=== PATIENT | male | born 1935 | race Caucasian/White ===

== ENCOUNTER 2025-02-13 13:04 | Inpatient (IN) | payer BC, MEDICARE ==
[~2025-02-13] VITALS: Ht 182.9 cm; Wt 123.6 kg
[2025-02-13 14:39] LABS: BASO # 0.0 10^3/uL (0.0-0.2); BASO % 0.2 % (0.0-1.0); EOS # 0.1 10^3/uL (0.0-0.5); EOS % 0.5 % (0.0-3.0); LYMPH # 0.7 10^3/uL (1.5-5.0); LYMPH % 6.2 % (24.0-44.0); MONO # 0.7 10^3/uL (0.0-0.8); MONO % 7.0 % (2.0-8.0); NEUTROPHILS # 9.0 10^3/uL (1.5-8.5); NEUTROPHILS % 85.5 % (36.0-66.0); PLATELET COUNT, AUTOMATED 170 10^3/uL (150-450)
[2025-02-13] MEDS ORDERED: SERT50TA29 PO (14:49)
[2025-02-13] MEDS ORDERED: PREG25CA63 PO (14:49)
[2025-02-13] MEDS ORDERED: ELIQ5TAB PO (14:49)
[2025-02-13] MEDS ORDERED: LEVO25TA5 PO (14:49)
[2025-02-13] MEDS ORDERED: DOCU100C16 PO (14:49)
[2025-02-13] MEDS ORDERED: SIMV10TA21 PO (14:49)
[2025-02-13] MEDS ORDERED: CHOL25TA8 PO (14:49)
[2025-02-13] MEDS ORDERED: VIBE75TA PO (14:49)
[2025-02-13] MEDS ORDERED: FURO20TA2 PO (14:49)
[2025-02-13] MEDS ORDERED: POTA-150 PO (14:49)
[2025-02-13] MEDS ORDERED: LOSA25TA13 PO (14:49)
[2025-02-13] MEDS ORDERED: DOXY-440 PO (14:49)
[2025-02-13] MEDS ORDERED: HOME MED LIST COMPLETE! XX SCH (14:55)
[2025-02-13 14:59] LABS: INR 1.2
[2025-02-13 15:05] LABS: ALT/SGPT 18.0 U/L (7.0-40); AST/SGOT 19.0 U/L (<34); CALCIUM LEVEL 8.7 MG/DL (8.3-10.6); CARBON DIOXIDE LEVEL 28.0 MMOL/L (20-31); CHLORIDE LEVEL 101.0 MMOL/L (98-107); CREATININE FOR GFR 1.05 MG/DL (0.70-1.30); GLOMERULAR FILTRATION RATE 68.3 (>35); POTASSIUM SERUM 4.2 MMOL/L (3.5-5.1); SODIUM LEVEL 141.0 MMOL/L (136-145)
[2025-02-13 15:36] LABS: AMPHETAMINES LEVEL URINE NEGATIVE (NEGATIVE); BARBITURATES URINE NEGATIVE (NEGATIVE); BENZODIAZEPINES URINE NEGATIVE (NEGATIVE); CANNABINOIDS URINE NEGATIVE (NEGATIVE); COCAINE METABOLITE URINE NEGATIVE (NEGATIVE); METHADONE URINE NEGATIVE (NEGATIVE); OPIATES URINE NEGATIVE (NEGATIVE); PHENCYCLIDINE URINE NEGATIVE (NEGATIVE)
[2025-02-13] MEDS: ONDANSETRON 4MG 2ML VIAL IV ONE (15:45)
[2025-02-13] MEDS ORDERED: NALOXONE INJ 0.4 MG/1 ML VIAL IV PRN (16:30)
[2025-02-13] MEDS ORDERED: MORPHINE 2 MG/ML 1 ML VIAL IV PRN (16:30)
[2025-02-13 16:52] LABS: KETONE, URINE AUTO RFX NEGATIVE (NEGATIVE); LEUKOCYTE ESTERASE UR AUTO RFX NEGATIVE (NEGATIVE); MUCUS, URINE RFX SMALL (NEGATIVE); NITRITE, URINE AUTO RFX NEGATIVE (NEGATIVE); RBC, URINE AUTO RFX 0 /HPF (0-3); SQUAM EPITHELIAL CELL UR AURFX 0 /HPF (0-6); WBC, URINE AUTO RFX 0 /HPF (0-3)
[2025-02-13] MEDS: LR 1,000 ML IV SCH (17:02)
[2025-02-13] MEDS: ACETAMINOPHEN 500 MG TAB PO SCH (17:10)
[2025-02-13] MEDS: traMADol 50 MG TAB PO ONE (17:10)
[2025-02-13] MEDS: PREGABALIN 25 MG CAP PO SCH (21:19)
[2025-02-13 22:14] VITALS: BP 160/79; TEMP 97; O2SAT 96
[2025-02-14] VITALS (9 sets, daily range): BP systolic 107–139; BP diastolic 52–64; TEMP 96.1–97.5; O2SAT 96–99
[2025-02-14] MEDS: LEVOTHYROXINE 25 MCG TABLET (0.025MG) PO SCH (05:56)
[2025-02-14] MEDS ORDERED: ACETAMINOPHEN 500 MG TAB PO PRN (06:00)
[2025-02-14] MEDS: ACETAMINOPHEN 500 MG TAB PO PRN (06:29)
[2025-02-14] MEDS: LOSARTAN 25 MG TAB PO SCH (09:00)
[2025-02-14] MEDS: SIMVASTATIN 10 MG TAB PO SCH (10:09)
[2025-02-14] MEDS: DOCUSATE SODIUM 100 MG CAPSULE PO SCH (10:09)
[2025-02-14] MEDS: SERTRALINE HCL 25 MG TABLET PO SCH (10:10)
[2025-02-14] MEDS: POTASSIUM CHLORIDE 10MEQ SR TABLET PO SCH (10:10)
[2025-02-14] MEDS ORDERED: LIDOCAINE 2% 100 MG/5 ML SDV (FOR ANES.) As Ordered ONE (12:32)
[2025-02-14] MEDS ORDERED: dexAMETHasone 4 MG/ML 1 ML VIAL As Ordered ONE (12:36)
[2025-02-14] MEDS ORDERED: ONDANSETRON 4MG 2ML VIAL As Ordered ONE (12:36)
[2025-02-14] MEDS ORDERED: PHENYLephrine 500MCG 5ML (100MCG/ML) SYRINGE As Ordered ONE (14:12)
[2025-02-14] MEDS: ONDANSETRON 4MG 2ML VIAL IV PRN (14:59)
[2025-02-14] MEDS: HYDROMORPHONE HCL 0.5 MG/0.5 ML SYRINGE IV PRN (15:00)
[2025-02-14] MEDS: KETOROLAC 30 MG/ML 1 ML VIAL IV ONE (15:15)
[2025-02-14] MEDS: ACETAMINOPHEN *IV* 1,000 MG in IV 1 EA IV ONE (17:23)
[2025-02-14] MEDS: ceFAZolin SODIUM 2 GM in DEXTROSE 5% (D5W) ADV/MINI-BAG 50 ML IV SCH (21:05)
[2025-02-15] MEDS: traMADol 50 MG TAB PO PRN (03:32)
[2025-02-15 05:05] VITALS: BP 116/49; TEMP 96.8; O2SAT 100
[2025-02-15 06:22] VITALS: BP 115/50; TEMP 97; O2SAT 99
[2025-02-15] MEDS: ACETAMINOPHEN 500 MG TAB PO ONE (07:30)
[2025-02-15] MEDS: traMADol 50 MG TAB PO ONE (07:30)
[2025-02-15 08:16] VITALS: BP 116/50; TEMP 97.7; O2SAT 95
[2025-02-15] MEDS: APIXABAN 5 MG TAB PO SCH (08:32)
[2025-02-15] MEDS: ACETAMINOPHEN 500 MG TAB PO SCH (11:15)
[2025-02-15 12:26] VITALS: BP 127/49; TEMP 97; O2SAT 95
[2025-02-15 17:02] VITALS: BP 117/52; TEMP 97.5; O2SAT 94
[2025-02-15 20:40] VITALS: BP 117/50; TEMP 98.1; O2SAT 94
[2025-02-16 00:38] VITALS: BP 118/50; TEMP 97.7; O2SAT 93
[2025-02-16 04:52] VITALS: BP 142/62; TEMP 97.7; O2SAT 94
[2025-02-16 05:36] LABS: KETONE, URINE AUTO RFX NEGATIVE (NEGATIVE); LEUKOCYTE ESTERASE UR AUTO RFX NEGATIVE (NEGATIVE); MUCUS, URINE RFX SMALL (NEGATIVE); NITRITE, URINE AUTO RFX NEGATIVE (NEGATIVE); RBC, URINE AUTO RFX 2 /HPF (0-3); SQUAM EPITHELIAL CELL UR AURFX 0 /HPF (0-6); WBC, URINE AUTO RFX 7 /HPF (0-3)
[2025-02-16] MEDS: TAMSULOSIN 0.4 MG CAP PO SCH (09:00)
[2025-02-16 10:01] LABS: PLATELET COUNT, AUTOMATED 149 10^3/uL (150-450)
[2025-02-16 10:29] LABS: ALT/SGPT 10.0 U/L (7.0-40); AST/SGOT 17.0 U/L (<34); CALCIUM LEVEL 8.2 MG/DL (8.3-10.6); CARBON DIOXIDE LEVEL 28.0 MMOL/L (20-31); CHLORIDE LEVEL 100.0 MMOL/L (98-107); CREATININE FOR GFR 1.36 MG/DL (0.70-1.30); GLOMERULAR FILTRATION RATE 50.1 (>35); POTASSIUM SERUM 4.4 MMOL/L (3.5-5.1); SODIUM LEVEL 137.0 MMOL/L (136-145)
[2025-02-16] MEDS ORDERED: **NOTE PATIENT COMMENT** MISC XX SCH (11:40)
[2025-02-16 20:56] VITALS: BP 124/49; TEMP 97.7; O2SAT 93
[2025-02-16 23:05] VITALS: BP 123/47; TEMP 97.2; O2SAT 93
[2025-02-16 23:30] VITALS: BP 123/47; TEMP 97.2; O2SAT 97
[2025-02-17] VITALS (11 sets, daily range): BP systolic 123–167; BP diastolic 47–68; TEMP 97–97.5; O2SAT 93–97
[2025-02-17 07:55] LABS: PLATELET COUNT, AUTOMATED 146 10^3/uL (150-450)
[2025-02-17 08:26] LABS: CALCIUM LEVEL 8.0 MG/DL (8.3-10.6); CARBON DIOXIDE LEVEL 26.0 MMOL/L (20-31); CHLORIDE LEVEL 102.0 MMOL/L (98-107); CREATININE FOR GFR 1.23 MG/DL (0.70-1.30); GLOMERULAR FILTRATION RATE 56.5 (>35); POTASSIUM SERUM 4.7 MMOL/L (3.5-5.1); SODIUM LEVEL 139.0 MMOL/L (136-145)
[2025-02-17] MEDS ORDERED: GEMTESA 75 MG PO SCH (09:00)
[2025-02-18 05:17] VITALS: BP 163/74; TEMP 97.2; O2SAT 97
[2025-02-18 06:20] LABS: PLATELET COUNT, AUTOMATED 146 10^3/uL (150-450)
[2025-02-18 06:51] LABS: CALCIUM LEVEL 8.2 MG/DL (8.3-10.6); CARBON DIOXIDE LEVEL 29.0 MMOL/L (20-31); CHLORIDE LEVEL 102.0 MMOL/L (98-107); CREATININE FOR GFR 1.15 MG/DL (0.70-1.30); GLOMERULAR FILTRATION RATE 61.2 (>35); POTASSIUM SERUM 4.6 MMOL/L (3.5-5.1); SODIUM LEVEL 139.0 MMOL/L (136-145)
[2025-02-18] MEDS: MIRALAX *UNIT DOSE* 17 GM PACKET PO SCH (10:00)
[2025-02-18] MEDS: SENNOSIDES/DOCUSATE SODIUM 8.6 MG/50MG TAB PO SCH (10:00)
[2025-02-18 12:00] VITALS: BP 114/51; TEMP 97.7; O2SAT 97
[2025-02-18 20:07] VITALS: BP 158/88; TEMP 97.9; O2SAT 97
[2025-02-19 04:19] VITALS: BP 143/57; TEMP 97; O2SAT 95
[2025-02-19 06:39] LABS: PLATELET COUNT, AUTOMATED 188 10^3/uL (150-450)
[2025-02-19 07:03] LABS: CALCIUM LEVEL 8.4 MG/DL (8.3-10.6); CARBON DIOXIDE LEVEL 28.0 MMOL/L (20-31); CHLORIDE LEVEL 103.0 MMOL/L (98-107); CREATININE FOR GFR 0.91 MG/DL (0.70-1.30); GLOMERULAR FILTRATION RATE 81.1 (>35); POTASSIUM SERUM 4.5 MMOL/L (3.5-5.1); SODIUM LEVEL 138.0 MMOL/L (136-145)
[2025-02-19] MEDS ORDERED: MIRA33506 PO (10:35)
[2025-02-19] MEDS ORDERED: TAMS-18 PO (10:35)
[2025-02-19 12:15] VITALS: BP 143/57; TEMP 97.5; O2SAT 97
[2025-02-19] MEDS: FLEET ENEMA PR PRN (13:06)
[2025-02-19 19:58] VITALS: BP 146/69; TEMP 97.2; O2SAT 94
[2025-02-20] VITALS (14 sets, daily range): BP systolic 110–166; BP diastolic 43–85; TEMP 97–97.6; O2SAT 96–99
[2025-02-20 06:29] LABS: PLATELET COUNT, AUTOMATED 181 10^3/uL (150-450)
[2025-02-20 06:53] LABS: CALCIUM LEVEL 7.9 MG/DL (8.3-10.6); CARBON DIOXIDE LEVEL 27.0 MMOL/L (20-31); CHLORIDE LEVEL 102.0 MMOL/L (98-107); CREATININE FOR GFR 0.98 MG/DL (0.70-1.30); GLOMERULAR FILTRATION RATE 74.2 (>35); POTASSIUM SERUM 4.5 MMOL/L (3.5-5.1); SODIUM LEVEL 139.0 MMOL/L (136-145)
[2025-02-21 04:35] VITALS: BP 162/69; TEMP 96.8; O2SAT 96
[2025-02-21 08:08] LABS: PLATELET COUNT, AUTOMATED 203 10^3/uL (150-450)
[2025-02-21 08:34] LABS: CALCIUM LEVEL 8.1 MG/DL (8.3-10.6); CARBON DIOXIDE LEVEL 27.0 MMOL/L (20-31); CHLORIDE LEVEL 100.0 MMOL/L (98-107); CREATININE FOR GFR 0.96 MG/DL (0.70-1.30); GLOMERULAR FILTRATION RATE 76.0 (>35); POTASSIUM SERUM 4.2 MMOL/L (3.5-5.1); SODIUM LEVEL 138.0 MMOL/L (136-145)
[2025-02-21 09:17] VITALS: BP 159/67; TEMP 97.5; O2SAT 97
[2025-02-21 09:32] VITALS: BP 159/67
== END 2025-02-21 11:55 | DRG 481 ==
LOC: EDBD 13:04 → M ED 13:04 → M ED INP 16:22 → M MS5PR 22:05
PROVIDERS: ADMIT General Practice; ATTEND Family Medicine
PROC: B246ZZZ Ultrasonography of Right and Left Heart (ICD-10-PCS; 2025-02-13)
PROC: 0QS706Z Reposition Left Upper Femur with Intramedullary Internal Fixation Device, Open Approach (ICD-10-PCS; principal; 2025-02-14 07:30)
PROC: 30233N1 Transfusion of Nonautologous Red Blood Cells into Peripheral Vein, Percutaneous Approach (ICD-10-PCS; 2025-02-16)
DX: S72.142A Displaced intertrochanteric fracture of left femur, initial encounter for closed fracture (principal); D62 Acute posthemorrhagic anemia; M25.552 Pain in left hip; R26.89 Other abnormalities of gait and mobility; S43.102A Unspecified dislocation of left acromioclavicular joint, initial encounter; W19.XXXA Unspecified fall, initial encounter; Y92.008 Other place in unspecified non-institutional (private) residence as the place of occurrence of the external cause; I25.10 Atherosclerotic heart disease of native coronary artery without angina pectoris; I48.91 Unspecified atrial fibrillation; I49.5 Sick sinus syndrome; I10 Essential (primary) hypertension; G47.33 Obstructive sleep apnea (adult) (pediatric); C61 Malignant neoplasm of prostate; M19.90 Unspecified osteoarthritis, unspecified site; F41.9 Anxiety disorder, unspecified; F32.A Depression, unspecified; R33.9 Retention of urine, unspecified; E78.5 Hyperlipidemia, unspecified; E03.9 Hypothyroidism, unspecified; E11.9 Type 2 diabetes mellitus without complications; E66.9 Obesity, unspecified; E55.9 Vitamin D deficiency, unspecified; H26.9 Unspecified cataract; Z87.891 Personal history of nicotine dependence; Z79.01 Long term (current) use of anticoagulants; Z79.890 Hormone replacement therapy; Z79.899 Other long term (current) drug therapy; Z95.0 Presence of cardiac pacemaker

== ENCOUNTER → 2025-02-22 | Outpatient (REF) | payer BC, MEDICARE ==
[~2025-02-22] MED LIST: BACT800T5 PO; CHOL25TA8 PO; DOCU100C16 PO; DOXY-440 PO; ELIQ5TAB PO; FERR325T14 PO; FURO20TA2 PO; LEVO25TA5 PO; LIDO1PAD TOP; LOSA25TA13 PO; MACR100C43 PO; MIRA33506 PO; POTA-150 PO; PREG25CA63 PO; SERT50TA29 PO; SIMV10TA21 PO; TAMS-18 PO; VIBE75TA PO
== END ==
LOC: SKLAB2 09:10
PROVIDERS: ATTEND Internal Medicine
DX: R19.8 Other specified symptoms and signs involving the digestive system and abdomen (principal)

== ENCOUNTER → 2025-02-25 | Outpatient (CLI) | payer BC, MEDICARE ==
[~2025-02-25] MED LIST changes: -BACT800T5 PO
== END ==
LOC: M RAD 14:25
PROVIDERS: ATTEND Internal Medicine
DX: S72.142A Displaced intertrochanteric fracture of left femur, initial encounter for closed fracture (principal); M19.012 Primary osteoarthritis, left shoulder; Y92.9 Unspecified place or not applicable; Y93.9 Activity, unspecified; Y99.9 Unspecified external cause status; X58.XXXA Exposure to other specified factors, initial encounter

== ENCOUNTER → 2025-02-25 | Outpatient (CLI) | payer BC, MEDICARE ==
[~2025-02-25] MED LIST changes: -FERR325T14 PO; -LIDO1PAD TOP; -MACR100C43 PO
== END ==
LOC: M SOG 07:52
PROVIDERS: ATTEND Physician Assistant
DX: Z53.9 Procedure and treatment not carried out, unspecified reason (principal)

== ENCOUNTER → 2025-02-26 | Outpatient (CLI) | payer MEDICARE, BC | LOC: M SOG 06:47 | PROVIDERS: ATTEND Physician Assistant | DX: M25.512 Pain in left shoulder (principal); S72.142A Displaced intertrochanteric fracture of left femur, initial encounter for closed fracture; Z53.9 Procedure and treatment not carried out, unspecified reason ==

== ENCOUNTER → 2025-02-28 | Outpatient (REF) | payer MEDICARE, BC ==
[~2025-02-28] MED LIST changes: +MACR100C43 PO
[2025-02-28 08:42] LABS: PLATELET COUNT, AUTOMATED 240 10^3/uL (150-450)
[2025-02-28 09:07] LABS: ALT/SGPT 31.0 U/L (7.0-40); AST/SGOT 19.0 U/L (<34); CALCIUM LEVEL 8.1 MG/DL (8.3-10.6); CARBON DIOXIDE LEVEL 24.0 MMOL/L (20-31); CHLORIDE LEVEL 102.0 MMOL/L (98-107); CHOLESTEROL LEVEL 135.0 MG/DL (<200); CHOLESTEROL RISK RATIO 3.65 (<5); CREATININE FOR GFR 0.92 MG/DL (0.70-1.30); GLOMERULAR FILTRATION RATE 80.0 (>35); LDL CHOLESTEROL 80.9 MG/DL (<100); NON-HDL-C 98.1 MG/DL; POTASSIUM SERUM 4.1 MMOL/L (3.5-5.1); SODIUM LEVEL 138.0 MMOL/L (136-145); TRIGLYCERIDES LEVEL 86.0 MG/DL (<150)
[2025-02-28 09:11] LABS: VITAMIN B12 LEVEL 458.0 PG/ML (211-911)
[2025-02-28 09:45] LABS: ESTIMATED AVERAGE GLUCOSE 94.0 MG/DL (60-110)
== END ==
LOC: SKLAB2 07:00
PROVIDERS: ATTEND Internal Medicine
DX: C61 Malignant neoplasm of prostate (principal); Z79.899 Other long term (current) drug therapy

== ENCOUNTER → 2025-03-07 | Outpatient (REF) | payer MEDICARE, BC ==
[2025-03-07 09:58] LABS: PLATELET COUNT, AUTOMATED 233 10^3/uL (150-450)
[2025-03-07 10:18] LABS: ALT/SGPT 13.0 U/L (7.0-40); AST/SGOT 13.0 U/L (<34); CALCIUM LEVEL 8.7 MG/DL (8.3-10.6); CARBON DIOXIDE LEVEL 28.0 MMOL/L (20-31); CHLORIDE LEVEL 100.0 MMOL/L (98-107); CHOLESTEROL LEVEL 136.0 MG/DL (<200); CHOLESTEROL RISK RATIO 3.44 (<5); CREATININE FOR GFR 0.91 MG/DL (0.70-1.30); GLOMERULAR FILTRATION RATE 81.1 (>35); IRON (FE) 36.0 UG/DL (65-175); LDL CHOLESTEROL 79.3 MG/DL (<100); NON-HDL-C 96.5 MG/DL; PERCENT SATURATION 17.5 % (19.7-50.0); POTASSIUM SERUM 4.2 MMOL/L (3.5-5.1); SODIUM LEVEL 139.0 MMOL/L (136-145); TRIGLYCERIDES LEVEL 86.0 MG/DL (<150)
[2025-03-07 10:20] LABS: VITAMIN B12 LEVEL 434.0 PG/ML (211-911)
[2025-03-07 10:39] LABS: ESTIMATED AVERAGE GLUCOSE 94.0 MG/DL (60-110)
== END ==
LOC: SKLAB2 07:00
PROVIDERS: ATTEND Internal Medicine
DX: C61 Malignant neoplasm of prostate (principal); D64.9 Anemia, unspecified; Z79.899 Other long term (current) drug therapy; E66.01 Morbid (severe) obesity due to excess calories; E03.9 Hypothyroidism, unspecified

== ENCOUNTER → 2025-03-22 | Outpatient (CLI) | payer MEDICARE ==
[2025-03-22 12:16] LABS: BASO # 0.0 10^3/uL (0.0-0.2); BASO % 0.3 % (0.0-1.0); EOS # 0.1 10^3/uL (0.0-0.5); EOS % 1.3 % (0.0-3.0); LYMPH # 0.8 10^3/uL (1.5-5.0); LYMPH % 9.9 % (24.0-44.0); MONO # 0.7 10^3/uL (0.0-0.8); MONO % 9.3 % (2.0-8.0); NEUTROPHILS # 6.0 10^3/uL (1.5-8.5); NEUTROPHILS % 78.8 % (36.0-66.0); PLATELET COUNT, AUTOMATED 194 10^3/uL (150-450)
[2025-03-22 12:30] LABS: APPEARANCE, URINE CLEAR (CLEAR); BACTERIA, URINE AUTO NEGATIVE (NEGATIVE); BILIRUBIN, URINE AUTO NEGATIVE (NEGATIVE); BLOOD, URINE BLOOD NEGATIVE (NEGATIVE); GLUCOSE, URINE (UA) AUTO NEGATIVE (NEGATIVE); KETONE, URINE AUTO NEGATIVE (NEGATIVE); LEUKOCYTE ESTERASE, URINE AUTO NEGATIVE (NEGATIVE); MUCUS, URINE SMALL (NEGATIVE); NITRITE, URINE AUTO NEGATIVE (NEGATIVE); PROTEIN, URINE AUTO 1+ mg/dL (NEGATIVE); RBC, URINE AUTO 1 /HPF (0-3); SPECIFIC GRAVITY URINE AUTO 1.017 (1.002-1.035); SQUAMOUS EPITHELIAL CELL UR AU 0 /HPF (0-6); UROBILINOGEN, URINE AUTO 0.2 mg/dL (0.0-2.0); WBC, URINE AUTO 3 /HPF (0-3)
[2025-03-22 12:48] LABS: ALT/SGPT 13.0 U/L (7.0-40); AST/SGOT 15.0 U/L (<34); CALCIUM LEVEL 9.1 MG/DL (8.3-10.6); CARBON DIOXIDE LEVEL 28.0 MMOL/L (20-31); CHLORIDE LEVEL 102.0 MMOL/L (98-107); CREATININE FOR GFR 0.92 MG/DL (0.70-1.30); GLOMERULAR FILTRATION RATE 80.0 (>35); POTASSIUM SERUM 3.9 MMOL/L (3.5-5.1); SODIUM LEVEL 139.0 MMOL/L (136-145)
== END ==
LOC: M ONCR 11:02
PROVIDERS: ATTEND General Practice
DX: C44.722 Squamous cell carcinoma of skin of right lower limb, including hip (principal); R35.1 Nocturia; R30.0 Dysuria; Z85.46 Personal history of malignant neoplasm of prostate; Z98.52 Vasectomy status; Z79.2 Long term (current) use of antibiotics; Z79.01 Long term (current) use of anticoagulants; Z79.899 Other long term (current) drug therapy
CPT/HCPCS: 36415; 80053; 81001; 85025; G0463

== ENCOUNTER → 2025-03-29 | Outpatient (CLI) | payer MEDICARE | LOC: M RAD 15:47 | PROVIDERS: ATTEND Internal Medicine | DX: M25.552 Pain in left hip (principal) ==

== ENCOUNTER → 2025-03-29 | Outpatient (REF) | payer MEDICARE | LOC: SKLAB2 14:21 | PROVIDERS: ATTEND Internal Medicine | DX: Z53.8 Procedure and treatment not carried out for other reasons (principal) ==

== ENCOUNTER → 2025-03-30 | Outpatient (REF) | payer MEDICARE ==
[2025-03-30 10:19] LABS: PROSTATIC SPECIFIC AG MONITOR 0.17 NG/ML (< 4.00)
[2025-03-30 10:24] LABS: TESTOSTERONE < 7 NG/DL (241-827)
== END ==
LOC: SKLAB2 07:00
PROVIDERS: ATTEND Internal Medicine
DX: C61 Malignant neoplasm of prostate (principal)

== ENCOUNTER 2025-04-13 13:29 | Emergency (ER) | payer OTHER, MEDICARE ==
[~2025-04-13] VITALS: Ht 182.9 cm; Wt 117.8 kg
[2025-04-13 14:36] LABS: BASO # 0.0 10^3/uL (0.0-0.2); BASO % 0.2 % (0.0-1.0); EOS # 0.1 10^3/uL (0.0-0.5); EOS % 1.2 % (0.0-3.0); LYMPH # 0.7 10^3/uL (1.5-5.0); LYMPH % 7.4 % (24.0-44.0); MONO # 1.0 10^3/uL (0.0-0.8); MONO % 10.2 % (2.0-8.0); NEUTROPHILS # 7.6 10^3/uL (1.5-8.5); NEUTROPHILS % 80.8 % (36.0-66.0); PLATELET COUNT, AUTOMATED 225 10^3/uL (150-450)
[2025-04-13 14:48] LABS: INR 1.23
[2025-04-13 15:06] LABS: CALCIUM LEVEL 8.7 MG/DL (8.3-10.6); CARBON DIOXIDE LEVEL 25.0 MMOL/L (20-31); CHLORIDE LEVEL 102.0 MMOL/L (98-107); CREATININE FOR GFR 0.87 MG/DL (0.70-1.30); GLOMERULAR FILTRATION RATE 83.0 (>35); IRON (FE) 18.0 UG/DL (65-175); MAGNESIUM LEVEL 2.0 MG/DL (1.8-2.4); PERCENT SATURATION 9.6 % (19.7-50.0); POTASSIUM SERUM 4.1 MMOL/L (3.5-5.1); SODIUM LEVEL 138.0 MMOL/L (136-145)
[2025-04-13 15:08] LABS: FREE T4 1.23 NG/DL (0.89-1.76)
[2025-04-13] MEDS: ACETAMINOPHEN 325 MG TAB PO ONE (15:08)
[2025-04-13 18:00] VITALS: O2SAT 98
[2025-04-13 18:33] VITALS: BP 158/75; TEMP 98.4
[2025-04-13] MEDS ORDERED: LIDO1PAD TOP (18:41)
[2025-04-13] MEDS ORDERED: HOME MED LIST COMPLETE! XX SCH (18:45)
[2025-04-16] MEDS ORDERED: FERR325T14 PO (13:20)
== END 2025-04-13 19:48 | disposition home or self-care (01) ==
LOC: EDBD 13:29 → M ED 13:29
DX: R53.1 Weakness (principal); M47.812 Spondylosis without myelopathy or radiculopathy, cervical region; I70.8 Atherosclerosis of other arteries; I44.0 Atrioventricular block, first degree; I45.10 Unspecified right bundle-branch block; I45.81 Long QT syndrome; I44.4 Left anterior fascicular block; E11.9 Type 2 diabetes mellitus without complications; I10 Essential (primary) hypertension; E78.5 Hyperlipidemia, unspecified; G47.33 Obstructive sleep apnea (adult) (pediatric); F41.9 Anxiety disorder, unspecified; Z79.01 Long term (current) use of anticoagulants; Z79.899 Other long term (current) drug therapy; Z96.642 Presence of left artificial hip joint

== ENCOUNTER → 2025-04-30 | Outpatient (RCR) | payer MEDICARE, OTHER ==
[~2025-04-30] MED LIST changes: +BACT800T5 PO; +FERR325T14 PO; +LIDO1PAD TOP
== END ==
LOC: M ONCR 04-04 14:07
PROVIDERS: ATTEND General Practice
DX: Z51.0 Encounter for antineoplastic radiation therapy (principal); C44.722 Squamous cell carcinoma of skin of right lower limb, including hip

== ENCOUNTER 2025-05-03 12:52 | Outpatient (RCR) | payer OTHER, MEDICARE ==
[2025-05-02 14:36] LABS: KETONE, URINE AUTO RFX NEGATIVE (NEGATIVE); MUCUS, URINE RFX SMALL (NEGATIVE); NITRITE, URINE AUTO RFX NEGATIVE (NEGATIVE); RBC, URINE AUTO RFX 11 /HPF (0-3); SQUAM EPITHELIAL CELL UR AURFX 0 /HPF (0-6)
[2025-05-02 14:41] LABS: LEUKOCYTE ESTERASE UR AUTO RFX 2+ (NEGATIVE); WBC, URINE AUTO RFX TNTC /HPF (0-3)
== END 2025-05-31 ==
LOC: M ONCR 12:52
PROVIDERS: ATTEND General Practice
DX: Z51.0 Encounter for antineoplastic radiation therapy (principal); C44.722 Squamous cell carcinoma of skin of right lower limb, including hip; R30.0 Dysuria

== ENCOUNTER → 2025-05-29 | Outpatient (CLI) | payer OTHER, MEDICARE | LOC: M SOG 07:23 | PROVIDERS: ATTEND Physician Assistant | DX: S72.142D Displaced intertrochanteric fracture of left femur, subsequent encounter for closed fracture with routine healing (principal); Y93.9 Activity, unspecified; Y92.9 Unspecified place or not applicable ==

== ENCOUNTER → 2025-06-05 | Outpatient (CLI) | payer OTHER, MEDICARE | LOC: M ONCR 13:57 | PROVIDERS: ATTEND Radiology Radiation Oncology | DX: C44.722 Squamous cell carcinoma of skin of right lower limb, including hip (principal); Z92.3 Personal history of irradiation; Z79.01 Long term (current) use of anticoagulants; Z79.899 Other long term (current) drug therapy ==

== ENCOUNTER 2025-07-02 16:47 | Emergency (ER) | payer MEDICARE, OTHER ==
[~2025-07-02] VITALS: Ht 182.9 cm; Wt 124.0 kg
[2025-07-02 17:15] VITALS: TEMP 97.2
[2025-07-02 19:30] VITALS: BP 187/94; O2SAT 98
== END 2025-07-02 19:50 | disposition home or self-care (01) ==
LOC: M ED 16:47 → EDBD 16:47 → M ED 19:50
DX: R60.0 Localized edema (principal); I48.91 Unspecified atrial fibrillation; I25.10 Atherosclerotic heart disease of native coronary artery without angina pectoris; E11.9 Type 2 diabetes mellitus without complications; I12.9 Hypertensive chronic kidney disease with stage 1 through stage 4 chronic kidney disease, or unspecified chronic kidney disease; N40.0 Benign prostatic hyperplasia without lower urinary tract symptoms; E66.9 Obesity, unspecified; G47.33 Obstructive sleep apnea (adult) (pediatric); E78.5 Hyperlipidemia, unspecified; Z85.46 Personal history of malignant neoplasm of prostate; Z87.891 Personal history of nicotine dependence; Z79.01 Long term (current) use of anticoagulants; Z79.899 Other long term (current) drug therapy

== ENCOUNTER → 2025-07-18 | Outpatient (CLI) | payer OTHER, MEDICARE | LOC: M WUC 11:28 | PROVIDERS: ATTEND Urology | DX: C61 Malignant neoplasm of prostate (principal) ==